=== PATIENT | male | born 1995 | race Caucasian/White ===

== ENCOUNTER 2016-08-08 10:02 | Emergency (ER) | payer OTHER ==
[~2016-08-08] VITALS: Wt 90.8 kg
[~2016-08-08 10:02] MED LIST: CIPR500T4 PO; DICY10CA60 PO; LOPE2CAP PO; ONDA4TAB35 PO
[2016-08-08] MEDS ORDERED: ACETAMINOPHEN 500 MG TAB PO STA (10:47)
--- NOTE | 2016-08-08 10:54 | ERD ---
ER Documentation Chief Complaint Date/Time DATE: 08/08/16 TIME: 10:48 Chief Complaint FEVER HEADACHE AND SORE THROAT FOR A FEW DAYS. NO DISTRESS NOTED HPI Patient is a 21-year-old male with no past medical surgical history here with headache, fever, body aches, and dry cough since yesterday afternoon. No home treatments. No difficulty breathing, shortness of breath, chest pain, nausea, vomiting, diarrhea, dizziness, lightheadedness, flank pain, dysuria, or any other symptoms. He denies smoking, international travel, and sick contacts. VACCINES are up-to-date. ROS All systems reviewed and are negative except as per history of present illness. Medications Home Meds Active Scripts Acetaminophen* (Tylenol*) 325 Mg Tablet, 2 TAB PO Q6 Y for PAIN AND OR ELEVATED TEMP, #20 TAB Prov:LIN THEODORE, ALLISON 08/08/16 Ciprofloxacin Hcl* (Ciprofloxacin Hcl*) 500 Mg Tablet, 500 MG PO BID for 7 Days , TAB Prov:TAINA HOOPER 05/04/16 Loperamide Hcl* (Imodium*) 2 Mg Capsule, 2 MG PO .WITH EACH DIARRHEA Y for DIARRHEA for 2 Days, CAP MAX 16 mg/day Prov:TAINA HOOPER 05/04/16 Dicyclomine Hcl* (Bentyl*) 10 Mg Capsule, 10 MG PO QID for 3 Days, CAP Prov:TAINA HOOPER 05/04/16 Ondansetron Hcl* (Zofran* ODT) 4 mg -ODT Tab.disper, 4 MG PO Q6 Y for NAUSEA AND /OR VOMITING, #20 TAB Prov:GABRIELE BYRD MD 02/03/15 Allergies Allergies: Coded Allergies: No Known Allergy (Unverified , 02/03/15) PMhx/Soc Medical and Surgical Hx: pt denies Medical Hx, pt denies Surgical Hx Hx Alcohol Use: No Hx Substance Use: No Hx Tobacco Use: No Physical Exam Vitals Vital Signs Date Time Temp Pulse Resp B/P Pulse Ox O2 Delivery O2 Flow Rate FiO2 08/08/16 11:47 99.8 08/08/16 10:06 100.8 92 22 136/78 96 Physical Exam INITIAL VITAL SIGNS: Reviewed by me, fever 100.8, no tachycardia, oximetry 96% on room air GENERAL: Alert. Well developed and well nourished. No respiratory distress. Nontoxic. Well appearing. No acute distress. HEAD: Head is normocephalic. Atraumatic. No sinus tenderness to palpation. EYES: EOMI.No scleral icterus. No conjunctival injection. No clear purulent drainage. ENT: External ears, nose, and mouth normal. Ear canals clear. Tympanic membranes pearly/tucker, without erythema, bulging, or effusion. Nasal passages patent and without rhinorrhea. Throat is clear and without erythema or exudates. Tonsils +2 and without erythema or exudates. Uvula midline. Airway patent. Moist mucous membranes. NECK: Supple. Full range of motion. Trachea midline. No meningismus. No lymphadenopathy. RESPIRATORY: No tachypnea. Clear to auscultation bilaterally. No wheezing, rales , or rhonchi. CV: Regular rate and rhythm. No murmurs, rubs, or gallops ABDOMEN: Soft, non-distended, non-tender. Bowel sounds normal in all quadrants. BACK: No CVA tenderness. Full ROM. EXTREMITIES: No obvious deformity. No clubbing or cyanosis. No edema. SKIN: Warm and dry. No diaphoresis. No obvious rashes or lesions. NEUROLOGIC: Alert and oriented x 3. Appropriate. Face is symmetric. Speech is normal. Moves all extremities equally. Results 24 hrs Current Medications Medications (Trade) Dose Ordered Sig/Maurizio Route PRN Reason Start Time Stop Time Status Last Admin Dose Admin Acetaminophen (Tylenol Tab) 1,000 mg ONCE STAT PO 08/08/16 10:47 08/08/16 10:49 DC 08/08/16 10:51 Procedures/MDM Nursing Notes Reviewed Previous Medical Records requested via [employer]. EMERGENCY DEPARTMENT COURSE / MEDICAL DECISION MAKING: The patient comes to the ED secondary to headache, fever, body aches, and dry cough since yesterday afternoon. Differential diagnosis upon initial evaluation includes but is not limited to: Pneumonia, sepsis, meningitis, viral syndrome, URI, strep pharyngitis, viral pharyngitis, and others. The patient was well-appearing, nontoxic, and in no acute distress. His lungs were clear to auscultation bilaterally in his oximetry was 96% on room air. He had no tachypnea or respiratory distress. He had no neck soreness or stiffness. No photophobia. No peritonsillar exudates. No tonsillar erythema. He had a benign physical exam. Given this, and his history of present illness, I have low suspicion at this time for pneumonia, sepsis, meningitis, strep pharyngitis , or any other serious causes of patient's symptoms. As such, I believe he is an appropriate candidate for outpatient management and follow-up at this time. He will be instructed to get plenty of fluids and plenty of rest. I will give him a work note for the next 2 days so that he is able to rest and recover. The patient was treated with Tylenol 1 g by mouth for fever, headache, body aches with good relief. He was afebrile prior to discharge. His repeat physical exam was benign. He states that he is feeling significantly better and wishes to be discharged home at this time so that he may rest. Final impression: Viral syndrome Based on patient's history of present illness and physical examination the decision was made to discharge. The patient was re-evaluated after ED treatment and stabilizing measures, and symptoms have improved. There is no evidence of life threatening injuries or illnesses at this time. On re-examination, patient resting in no distress, stable vital signs, reports feeling better and safe for discharge with outpatient follow up with PMD in 2-3 days. Patient given return precautions. Patient verbalized understanding and agreed to return precautions. He will return immediately for any new or worsening symptoms. The patient was instructed to please get plenty of fluids and plenty of rest. He was instructed to cover his cough and perform good hand hygiene. He was instructed to take his Tylenol as directed for fever, body aches , and headache. I gave the patient work note for today, tomorrow, and the following day so that he may get plenty of rest. Patient's blood pressure was elevated but appears stable without evidence of hypertensive emergency, end organ damage, chest pain or shortness of breath. The patient was counseled about the risks of untreated hypertension and urged to pursue outpatient monitoring and therapy in 2-3 days with their primary care physician. Prescriptions Tylenol Departure Diagnosis: Primary Impression: Viral syndrome Condition: Stable LIN THEODORE NP Aug 08, 2016 10:54
[2016-08-08] MEDS ORDERED: ACET325T33 PO (11:36)
[2016-08-08 11:47] VITALS: TEMP 99.8
== END 2016-08-08 11:48 | disposition home or self-care (01) ==
LOC: FTE 10:02
DX: B34.9 Viral infection, unspecified (principal)
CPT/HCPCS: Z7502; Z7610; 99283